=== PATIENT | male | born 1945 | race Caucasian/White ===

== ENCOUNTER 2016-09-16 05:54 | Day surgery (SDC) | payer OTHER ==
--- NOTE | ~2016-09-16 | EGD ---
EGD REPORT [facility] [address] [address] NAME: LEI LEES : [birth year] STATUS : REG [facility]#: [id number] AGE: 71 ADM/REG DATE : 09/16/16 MR#: [id number] REPORT SERV DATE: 09/16/16 DICTATED BY: ALIE SOLANO DATE: 09/16/16 REPORT STATUS : Draft [facility]ANS[facility]IBED [facility]: [facility] DATE: 09/16/16 End[facility] Center Patient Name: Lei Lees Date of : 1945 Attending MD: ALIE SOLANO MD Procedure Date No Time: 09/16/2016 Procedure: Colonoscopy Indications: High risk colon cancer surveillance: Personal history of colonic polyps Referring MD: TITI BOWSER Medicines: as per anesthesia Complications: No immediate complications. Procedure: Pre-Anesthesia Assessment: - ASA Grade Assessment: III - A patient with severe systemic disease. After I obtained informed consent, the scope was passed under direct vision. Throughout the procedure, the patient's blood pressure, pulse, and oxygen saturations were monitored continuously. The PCF [id number] was introduced through the anus and advanced to the cecum, identified by appendiceal orifice and ileocecal valve. The colonoscopy was performed without difficulty. The patient tolerated the procedure. The quality of the bowel preparation was fair. Findings: The perianal and digital rectal examinations were normal. A sessile polyp was found in the transverse colon. The polyp was 3 mm in size. The polyp was removed with a cold biopsy forceps. Resection and retrieval were complete. A sessile polyp was found in the sigmoid colon. The polyp was 4 mm in size. The polyp was removed with a cold biopsy forceps. Resection and retrieval were complete. Multiple small and large-mouthed diverticula were found in the sigmoid colon, in the descending colon, in the transverse colon and in the ascending colon. Internal hemorrhoids were found during endoscopy and were mild. Impression: - One 3 mm polyp in the transverse colon. Resected and retrieved. - One 4 mm polyp in the sigmoid colon. Resected and retrieved. - Diverticulosis in the sigmoid colon, in the descending colon, in the transverse colon and in the ascending colon. EGD REPORT [address] [address] NAME: LEI LEES : [birth year] STATUS : REG [facility] PAT#: [id number] AGE: 71 ADM/REG DATE : 09/16/16 MR#: [id number] REPORT SERV DATE: 09/16/16 DICTATED BY: ALIE SOLANO DATE: 09/16/16 REPORT STATUS : Draft TRANSCRIBED BY: [employer] DATE: 09/16/16 - Internal hemorrhoids. Recommendation: - Await pathology results. - Repeat colonoscopy for surveillance based on pathology results. Procedure Code(s): --- Professional --- 24912, Colonoscopy, flexible, proximal to splenic flexure; with biopsy, single or multiple Diagnosis Code(s): --- Professional --- D12.5, Benign neoplasm of sigmoid colon D12.3, Benign neoplasm of transverse colon K64.8, Other hemorrhoids K57.30, Diverticulosis of large intestine without perforation or abscess without bleeding Z86.010, Personal history of colonic polyps CPT copyright 2013 [employer]. All rights reserved. The codes documented in this report are preliminary and upon remote medical coder review may be revised to meet current compliance requirements. ALIE SOLANO MD 09/16/2016 7:42 AM This report has been signed electronically. Number of Addenda: 0 Note Initiated On: 09/16/2016 7:08 AM Scope Withdrawal Time 0 hours 8 minutes 41 seconds
[~2016-09-16 05:54] MED LIST: ALIGN4 MG PO; BUM1 PO; GARLIC PO; GLUCOPHAGE1000 MG PO; GLUCPH PO; GLUCXL2.5 PO; KLOR-CON M2020 MEQ PO; MIRAPEX1 MG PO; MOBIC15 MG PO; Multiple Vit Tab PO; NEUR600 PO; SIN25 PO; TOPAMAX100 PO; TOPAMAX50 MG PO; TOPXL25 PO; TROKENDI PO; TUMERIC PO; VITAMIN A8000 UNIT PO; VITAMIN D31000 UNIT PO; VITE PO; ZESTRIL10 MG PO; ZOCOR20 PO; [UNRECOGNIZED DRUG - OTHER] OR
[2016-12-11] MEDS ORDERED: LIPITOR40 PO (10:18)
[2016-12-11] MEDS ORDERED: COZ50 PO (10:20)
[2016-12-11] MEDS ORDERED: NORV25 PO (10:21)
[2016-12-11] MEDS ORDERED: ASAB PO (10:22)
[2016-12-11] MEDS ORDERED: ATRONASAL3 NAS (10:23)
[2016-12-11] MEDS ORDERED: MULTIPLE VIT PO (10:24)
[2016-12-29] MEDS ORDERED: PLEXUS PO (09:25)
[2016-12-29] MEDS ORDERED: COZ50 PO (09:26)
[2016-12-30] MEDS ORDERED: TOPAMAX100 PO (08:19)
== END 2016-09-16 23:59 | disposition home or self-care (01) ==
LOC: DMU 05:54
PROVIDERS: Internal Medicine Gastroenterology
PROC: 0DBN8ZZ Excision of Sigmoid Colon, Via Natural or Artificial Opening Endoscopic (ICD-10-PCS; 2016-09-16)
PROC: 0DBL8ZZ Excision of Transverse Colon, Via Natural or Artificial Opening Endoscopic (ICD-10-PCS; principal; 2016-09-16 07:00)
DX: D12.3 Benign neoplasm of transverse colon (principal); K63.5 Polyp of colon; K57.30 Diverticulosis of large intestine without perforation or abscess without bleeding; K64.8 Other hemorrhoids; I10 Essential (primary) hypertension; E78.00 Pure hypercholesterolemia, unspecified; G20 Parkinson's disease; E11.9 Type 2 diabetes mellitus without complications; Z86.010 Personal history of colon polyps
CPT/HCPCS: 82962; 88305